=== PATIENT | male | born 1945 ===

== ENCOUNTER 2018-05-30 10:52 | Inpatient (IN) | payer OTHER ==
[~2018-05-30] VITALS: Ht 167.6 cm; Wt 78.9 kg
[2018-06-16] MEDS ORDERED: LEVO-T25 MCG PO (13:29)
[2018-06-16] MEDS ORDERED: TOPROL XL100 M1 PO (13:30)
[2018-06-16] MEDS ORDERED: COZAAR100 MG PO (13:31)
[2018-06-16] MEDS ORDERED: LASIX20 MG PO (13:31)
[2018-06-16] MEDS ORDERED: AMLOD-VALSA-HC1 EAC1 PO (13:31)
[2018-06-16] MEDS ORDERED: PREVASTATIN PO (13:32)
[2018-06-16] MEDS ORDERED: FOLGARD TABLET1 EACH PO (13:32)
[2018-06-16] MEDS ORDERED: TAMS0.4C PO (13:32)
[2018-06-16] MEDS ORDERED: FERROUS SULFAT140 MG PO (13:33)
[2018-06-23] MEDS ORDERED: PRAVASTATIN SOD40 MG PO (09:47)
[2018-06-28] MEDS ORDERED: ULTRACET PO (12:11)
[2018-06-28] MEDS ORDERED: HYOSCYAMINE0.125 M1 SL (12:11)
[2018-06-28] MEDS ORDERED: INTEGRA F CAPS1 EACH PO (12:12)
== END 2018-06-28 13:45 | disposition home or self-care (01) | DRG 330 ==
LOC: O/R 06-23 06:36 → SURG 06-23 06:36
PROVIDERS: Surgery
PROC: 07TC4ZZ Resection of Pelvis Lymphatic, Percutaneous Endoscopic Approach (ICD-10-PCS; 2018-06-23)
PROC: 0DTF4ZZ Resection of Right Large Intestine, Percutaneous Endoscopic Approach (ICD-10-PCS; principal; 2018-06-23 11:30)
PROC: 3E0336Z Introduction of Nutritional Substance into Peripheral Vein, Percutaneous Approach (ICD-10-PCS; 2018-06-26)
DX: C18.2 Malignant neoplasm of ascending colon (principal); K56.0 Paralytic ileus; K91.89 Other postprocedural complications and disorders of digestive system; R59.0 Localized enlarged lymph nodes; I11.9 Hypertensive heart disease without heart failure; E03.8 Other specified hypothyroidism; N40.0 Benign prostatic hyperplasia without lower urinary tract symptoms; E78.4 Other hyperlipidemia; D50.0 Iron deficiency anemia secondary to blood loss (chronic)